=== PATIENT | male | born 1965 | race Caucasian/White ===

== ENCOUNTER 2018-01-17 10:58 | Day surgery (SDC) | payer OTHER, SELFPAY ==
[2018-01-06 13:05] VITALS: BMI 44.2
[2018-01-17] VITALS (9 sets, daily range): BP systolic 148–179; BP diastolic 72–94; PULSE 75–88; RESP 5–16; TEMP 36.6–37.6; O2SAT 93–100; BMI 44.2
[2018-01-17] MEDS: LACTATED RINGERS 1,000 ML 42 ML IV ×2 (11:31→13:51)
[2018-01-17] MEDS: MIDAZOLAM 2 MG/2 ML VIAL IV (12:12)
[2018-01-17] MEDS: fentaNYL 100 MCG/2 ML INJ 50 MCG IV ×2 (12:12→12:17)
[2018-01-17] MEDS: VANCOMYCIN 1,000 MG/200 ML FROZ.PIGGY 200 MG IV (12:27)
--- NOTE | 2018-01-17 12:33 | PM.PREOP ---
Pre-operative Note Interval Note Pre-op Check: Yes History & Physical Reviewed by Physician and Yes Exam Performed Changes: No
--- NOTE | 2018-01-17 13:27 | SUR.OPER ---
Lateral on padded OR bed with mcnulty bag positioner, head on pillow, gel axillary roll in place, bottom leg bent with gel pad under knee to foot, upper leg straight and supported with pillows. Operative arm secured in shoulder positioning suspension device. non-operative arm secured on padded arm board. Safety belt at hip, tape over blanket securing lower legs.
[2018-01-17] MEDS: SODIUM CHLORIDE IRRIG SOLUTION 3,000 ML, EPINEPHrine 1 MG IRR (13:48)
[2018-01-17] MEDS: BUPIVACAINE 0.5% W/ EPI (PF) VIAL 30 ML INJ (13:48)
[2018-01-17] MEDS: HYDROMORPHONE 2 MG INJ 0.25 MG IV ×5 (14:24→14:51)
--- NOTE | 2018-01-17 14:26 | P.OP_ITS ---
Operative Date/Time/Diagnoses Date of procedure: 01/17/18 Time of procedure: 14:00 Pre-op diagnosis: 1. Recurrent acromioclavicular osteoarthritis after prior distal clavicle excision 2. Worsening shoulder pain after prior arthroscopic subacromial decompression Post-op diagnosis: other (In addition the patient was discovered to have significant glenohumeral osteoarthritis not evident on the radiographs.) Procedure & Clinicians Procedure: 1. Open distal clavicle excision 2. Arthroscopic debridement of subacromial scarring 3. Suprascapular nerve block by surgeon for postoperative pain control Same procedure as scheduled: Yes Indications: The patient is a 52-year-old gentleman who previously has undergone arthroscopic shoulder surgery for work related injury. He has gone on to have recurrence of pain which has failed to improve with nonoperative measures. After discussion the risks benefits and alternatives he has requested we proceed with surgery. Risks discussed included but not limited to: Failure to relieve pain, failure to improve function, stiffness, infection, nerve damage, deep venous thrombosis, pulmonary embolism, stroke, myocardial infarction, permanent paralysis and . Surgeon: Levon Dejesus Senior Scrum Master: Carla Gonzalez Click Yes if Unassisted: No Anesthesia Type: General, Peripheral nerve block and Local Operative Notes Findings: 1. Significant glenohumeral osteoarthritis with bone exposed on both the humeral and glenoid surfaces 2. Widespread fraying of glenoid labrum 3. Intact but inflamed glenohumeral ligaments 4. Intact subscapularis 5. Absent biceps from prior surgery 6. Intact supraspinatus 7. Intact infraspinatus 8. Inflammation in axillary pouch 9. Scarring in the subacromial bursa with no evidence of need for repeat subacromial decompression 10. Intact rotator cuff from the bursal surface 11. Significant regrowth of the distal clavicle with fragments of bone as well as medial clavicle in contact with the acromion. 12. No evidence of stiffness or pathologic laxity on examination under anesthesia. Closure Type: primary Specimen(s): none sent Implants & Drains: None Estimated Blood Loss (mL): 30 Blood products transfused: none Tourniquet time (min): 0 Procedure in detail: The patient was seen in the preoperative area where identified his right shoulder as the operative site and this was marked with my initials. He underwent an attempt at an interscalene block however this was unsuccessful. He was taken to the operating room and placed on the operating room table in a supine position where he underwent induction of a general anesthetic. He was then repositioned in the left lateral decubitus position with an axillary roll and padding for all pressure points. He was stabilized in this position using the ?mcnulty bag?. The right arm was repaired from fingertips to the base of the neck with ChloraPrep in the usual fashion drape through sterile drapes. The arm was placed in 20 lb of balanced skin suspension due to the large size of the arm. Subcutaneous landmarks were outlined on the skin with marking pen and portal sites selected. The posterior portal was created for the arthroscope and the shoulder was diagnostically arthroscoped with the result given above. There did not appear to be any lesions requiring debridement in the glenohumeral joint so the arthroscope was withdrawn and replaced into the subacromial bursa through the posterior portal. Lateral portal was created for instrumentation. Subacromial scarring was debrided. This point all arthroscopic equipment was removed. The anterior portal was extended over the distal clavicle to allow access for the distal clavicle excision. The muscular fascia was elevated with Bovie cautery off the distal clavicle and the distal 1 cm of clavicle as well as small fragments of bone in the residual acromioclavicular joint space were removed. I placed my finger in the joint and confirmed there was no additional contact. The wound was then copiously irrigated. Closure was obtained with 0 Vicryl in the fascial layer followed by 3 of acne Vicryl in a subcutaneous layer followed by running 4 0 Monocryl for the skin. Four 0 Monocryl was also used on the portal sites. Steri-Strips were applied. The wounds were dressed with sterile 4x4s, an ABD and an adhesive dressing. The patient's arm was placed in a sling and he was transported to the recovery room in good condition having tolerated the procedure well. Complications: none Condition: stable Disposition: PACU Plan for aftercare: The patient will be maintained on a standard shoulder rehab program based on the subacromial decompression protocol. He will be allowed to use the hand as tolerated. We will discuss the long-term effects of the osteoarthritis in the shoulder as he likely at some point in his life will require a total shoulder replacement. This would best be postponed until he is considerably older.
[2018-01-17] MEDS: OXYCODONE IR 5 MG TABLET PO (14:32)
[2018-01-17] MEDS: OXYCODONE/ACETAMINOPHEN 5/325 TABLET 1 TAB PO (14:33)
[2018-01-17] MEDS: hydrOXYzine pamoate 25 MG CAPSULE PO (14:33)
--- NOTE | 2018-01-17 14:36 | SUR.PHASEI ---
Dr. phelan notified [facility] by Nadine, no new orders
--- NOTE | 2018-01-17 14:36 | SUR.PHASEI ---
Pt sitting on the edge of the bed for comfort. Sling repositioned.
== END 2018-01-17 15:16 | disposition home or self-care (01) ==
PROVIDERS: PCP Family Medicine; Visit Provider Orthopaedic Surgery
PROC: (CPT 23120; principal; 2018-01-17 12:45)
PROC: (CPT 29805; 2018-01-17 12:45)
DX: M75.111 Incomplete rotator cuff tear or rupture of right shoulder, not specified as traumatic (principal); M75.41 Impingement syndrome of right shoulder; M75.21 Bicipital tendinitis, right shoulder; E66.9 Obesity, unspecified; I10 Essential (primary) hypertension; E78.5 Hyperlipidemia, unspecified; E11.9 Type 2 diabetes mellitus without complications; F17.210 Nicotine dependence, cigarettes, uncomplicated; G89.18 Other acute postprocedural pain
CPT/HCPCS: 29823; 23120; 64450; J0171; J0330; J1170; J2250; J2405; J2704; J3010; J3370

== ENCOUNTER 2018-06-13 08:07 | Day surgery (SDC) | payer OTHER, SELFPAY ==
[2018-06-08 15:19] VITALS: BMI 44.9
[2018-06-13] VITALS (7 sets, daily range): BP systolic 90–108; BP diastolic 54–64; PULSE 70–78; RESP 12–20; TEMP 36.1–36.4; O2SAT 92–96; BMI 44.9
[2018-06-13] MEDS: LACTATED RINGERS 1,000 ML 42 ML IV (08:35)
--- NOTE | 2018-06-13 09:47 | PM.PREOP ---
Pre-operative Note Interval Note Pre-op Check: Yes History & Physical Reviewed by Physician and Yes Exam Performed Changes: No
[2018-06-13] MEDS: CEFAZOLIN 2 GM/100 ML FROZ.PIGGY IV (09:50)
--- NOTE | 2018-06-13 10:04 | SUR.OPER ---
Supine on padded OR bed, head on pillow, arms secured on padded arm boards at <90 degrees abduction, legs uncrossed, safety belt at thigh, tape over blanket over lower legs.
[2018-06-13] MEDS: BUPIVACAINE 0.5% (PF) VIAL 30 ML INJ (10:09)
[2018-06-13] MEDS: fentaNYL 100 MCG/2 ML INJ 50 MCG IV ×2 (10:40→10:45)
--- NOTE | 2018-06-13 10:52 | P.OP_ITS ---
Operative Date/Time/Diagnoses Date of procedure: 06/13/18 Time of procedure: 10:30 Pre-op diagnosis: Right carpal tunnel syndrome Post-op diagnosis: same Procedure & Clinicians Procedure: Right carpal tunnel release Same procedure as scheduled: Yes Indications: Patient is a 53-year-old gentleman who in December underwent a right shoulder procedure. After that procedure he developed the onset of carpal tunnel symptoms. After failure to improve non operatively and approval from his insurance company he has agreed to carpal tunnel release. Prior to proceeding he agreed to the risks benefits and alternatives of surgery. Risks discussed included but were not limited to: Nerve damage, wound dehiscence, infection, stiffness, loss of contractor field hauling strength, deep venous thrombosis, pulmonary embolism, stroke, myocardial infarction, permanent paralysis and . Surgeon: Levon Dejesus Bi Technical Lead: Nancie Gómez Click Yes if Unassisted: Yes Anesthesia Type: General and Local Operative Notes Findings: Extremely tight carpal canal. Closure Type: primary Specimen(s): none sent Implants & Drains: None Estimated Blood Loss (mL): 2 Blood products transfused: none Tourniquet time (min): 25 Procedure in detail: The patient was seen in the preoperative area where he identified his right wrist as the operative site and this was marked with my initials. He received preoperative antibiotics with a 1st generation cephalosporin and was taken to the operating room and placed on the operating room table in the supine position where he underwent the induction of a general anesthetic. A tourniquet was placed about his proximal forearm on the right and his right hand was prepared from the fingertips to the tourniquet in the usual fashion with ChloraPrep and draped through sterile drapes. A inspector timers- out was performed. The arm was elevated and exsanguinated with an Esmarch bandage and the tourniquet inflated to 250 mm of mercury. Initially an approximately 1 in incision was created in line with the ring finger metacarpal. This was carried through the palmar fascia with scissor dissection. The distal and of the transverse carpal ligament was identified. A Casiano scissors was slid underneath it as a nerve protector and the scalpel was used to divide the transverse carpal ligament. It became evident that I had divided Guyon's canal rather than the carpal canal and a 2nd release was started more to the radial side of the palm. It was evident that the distal end of the carpal tunnel itself was extremely tight and would not allow the passage of a nerve protector. As a result I elected to convert to a full open carpal tunnel rather than a mini open. The incision was extended for approximately an inch into the distal forearm. Care was taken not to cross the wrist crease at a right angle. The palmaris longus was identified and a fascial incision created to the ulnar side of the palmaris longus. The underlying nerve was identified and carefully followed out through the carpal tunnel to the distal end of the transverse carpal ligament. Complete release was performed and confirmed visually. The nerve was inspected and found to have been uninjured by the procedure. The wound was then closed with 4 0 nylon. 7 mL of 0.5% plain Marcaine was injected subcutaneously for postoperative pain control. Dressings of Xeroform, sterile 4x4s, cast padding and David wrap were applied. The tourniquet was deflated at a total tourniquet time of 25 min. The patient was transferred to the recovery room in good condition having tolerated the procedure well. Complications: none Condition: stable Disposition: PACU Plan for aftercare: The patient will be maintained on a standard carpal tunnel protocol. His sutures will removed in 2 weeks. He will not be allowed to drive for work at least until after his sutures are out.
[2018-06-13] MEDS: OXYCODONE/ACETAMINOPHEN 5/325 TABLET 1 TAB PO (10:55)
== END 2018-06-13 11:20 | disposition home or self-care (01) ==
PROVIDERS: PCP Family Medicine; Visit Provider Orthopaedic Surgery
PROC: (CPT 64721; principal; 2018-06-13 10:15)
DX: G56.01 Carpal tunnel syndrome, right upper limb (principal); I10 Essential (primary) hypertension; E78.5 Hyperlipidemia, unspecified; E11.9 Type 2 diabetes mellitus without complications; I25.10 Atherosclerotic heart disease of native coronary artery without angina pectoris; I25.2 Old myocardial infarction; Z79.4 Long term (current) use of insulin
CPT/HCPCS: 64721; J0690; J2405; J2704; J3010